=== PATIENT | female | born 1990 | race African-American/Black ===

== ENCOUNTER 2017-05-30 20:03 | Emergency (ER) | payer SELFPAY ==
[~2017-05-30 20:03] MED LIST: ISOVUE-370 76%-LOCM 1 ML ONE
[2017-05-30 20:50] LABS: Bilirubin Negative (Negative); Blood, Urine Negative (Negative); Clarity CLEAR (Clear); Glucose, Urine (Dipstick) Negative (Negative); Leukocyte Negative (Negative); Nitrite Negative (Negative); Pregnancy Test - Urine (BHCG) Negative (Negative); Protein, Urine (Dipstick) Negative (Neg-Trace); Specific Gravity, Urine 1.024 (1.002-1.036); pH, Urine 7.5 (5.0-9.0)
[2017-05-30 20:51] LABS: Pregu Control Background? CLEAR/WHITE (CLR/WHITE); Pregu Control Bar Appear? YES (CONTROL BAR); Specific Gravity 1.024 (1.002-1.036)
[2017-05-30 21:07] LABS: ALT (SGPT) 7 U/L (8-55); AST (SGOT) 16 U/L (5-34); Albumin 4.2 g/dL (3.5-5.0); Alkaline Phosphatase 49 U/L (40-150); Anion Gap 10 mmol/L (10-20); BUN (Urea Nitrogen) 10 mg/dL (7.0-18.7); Bilirubin, Total 0.2 mg/dL (0.2-1.2); CK (CPK) 168 U/L (29-168); Calc. Creatinine Clearance 0 mL/min (70-130); Calcium 9.4 mg/dL (7.8-10.44); Carbon Dioxide 27 mmol/L (22-29); Chloride 106 mmol/L (98-107); Estimated GFR-MDRD Greater than 90; Globulin 3.5 g/dL (2.4-3.5); Glucose 85 mg/dL (70-105); Potassium 3.9 mmol/L (3.5-5.1); Protein, Total 7.7 g/dL (6.0-8.3); Sodium 139 mmol/L (136-145)
[2017-05-30 21:12] LABS: CKMB 0.6 ng/mL (0-6.6); Troponin I Less than 0.010 ng/mL (< 0.028)
[2017-05-30] MEDS ORDERED: Morphine 4 MG/ML VIAL ONE ×2 (21:57→22:32)
[2017-05-30] MEDS ORDERED: Ondansetron ODT 4 MG TAB ONE ×2 (21:57→22:23)
--- NOTE | 2017-05-30 22:41 | CT ---
CT ABDOMEN AND PELVIS WITH IV CONTRAST: 05/30/2017 HISTORY: Constant sharp right lower quadrant abdominal pain and chest pain for the past three days. Nausea. COMPARISON: None available. FINDINGS: The lung bases, liver, spleen, pancreas, bilateral adrenal glands, kidneys, abdominal aorta, and urin eamon bladder demonstrate a normal CT appearance. Post cholecystectomy changes are present. There is fluid in the endometrial canal, which may be related to the stage of the patient's menstrual cycle. A small amount of free fluid is seen in the cul-de-sac. The appendix is not visualized, as there are multiple adjacent loops of unopacified small bowel, limi ting adequate evaluation. No fluid collection is seen. There is a rounded, 7 mm, metallic density seen overlying the region of a loop of small bowel, within the upper pelvis, which may be related to ingestion of a metallic foreign body. The osseous structures are intact. IMPRESSION: 1. Metallic foreign body, which appears to be within a loop of small bowel within the upper pelvis. Correlate for ingestion of a metallic foreign body. 2. Post cholecystectomy changes. 3. Small amount of free fluid in the cul-de-sac. 4. Nonvisualization of the appendix secondary to multiple unopacified loops of small bowel and lack of intraabdominal fat. 5. No acute findings are seen in the abdomen or pelvis. POS: [facility]
== END 2017-05-31 00:14 | disposition home or self-care (01) ==
LOC: ERS 20:03
DX: T18.8XXA Foreign body in other parts of alimentary tract, initial encounter (principal); R10.31 Right lower quadrant pain
CPT/HCPCS: 36415; 74177; 80053; 81003; 81025; 82150; 82550; 82553; 84484; 93005; 96361; 96374; 96376; J2270; Q0162

== ENCOUNTER 2017-06-28 10:14 | Emergency (ER) | payer SELFPAY | END 2017-06-28 11:15 | disposition left against medical advice (07) | LOC: ERS 10:14 | DX: Z53.21 Procedure and treatment not carried out due to patient leaving prior to being seen by health care provider (principal) ==

== ENCOUNTER 2017-09-14 02:08 | Emergency (ER) | payer SELFPAY ==
[2017-09-14 02:41] LABS: #Basophils 0.1 thou/uL (0.0-0.2); #Eosinphils 0.6 thou/uL (0.0-0.7); #Lymphocytes 2.9 thou/uL (1.20-3.40); #Monocytes 0.5 thou/uL (0.11-0.59); #Neutrophils 3.8 thou/uL (1.40-6.50); %Basophils 1.1 % (0.0-1.0); %Eosinophils 7.8 % (0.0-10.0); %Lymphocytes 36.7 % (21.0-51.0); %Monocytes 6.8 % (0.0-10.0); %Neutrophils 47.6 % (42.0-75.0); Hemoglobin 11.4 g/dL (12.0-16.0); Mean Corpuscular HGB CONC 35.2 g/dL (32.0-36.0); Mean Corpuscular Hemoglobin 31.3 pg (27.0-31.0); Mean Corpuscular Volume 88.7 fL (78.0-98.0); Mean Platelet Volume 7.4 fL (7.4-10.4); Platelet Count 338 thou/uL (130-400); RBC Distribution Width 11.9 % (11.5-14.5); Red Blood Cell (RBC) Count 3.65 mill/uL (4.20-5.40); White Blood Cell (WBC) Count 7.9 thou/uL (4.8-10.8)
[2017-09-14 03:03] LABS: ALT (SGPT) 9 U/L (8-55); AST (SGOT) 15 U/L (5-34); Alkaline Phosphatase 43 U/L (40-150); Anion Gap 14 mmol/L (10-20); BUN (Urea Nitrogen) 13 mg/dL (7.0-18.7); Bilirubin, Total 0.3 mg/dL (0.2-1.2); Calc. Creatinine Clearance 0 mL/min (70-130); Carbon Dioxide 22 mmol/L (22-29); Chloride 106 mmol/L (98-107); Estimated GFR-MDRD Greater than 90; Globulin 3.4 g/dL (2.4-3.5); Glucose 93 mg/dL (70-105); Lipase 43 U/L (8-78); Potassium 3.2 mmol/L (3.5-5.1); Protein, Total 7.4 g/dL (6.0-8.3); Sodium 139 mmol/L (136-145)
[2017-09-14 05:13] LABS: Bilirubin Negative (Negative); Blood, Urine Negative (Negative); Clarity CLEAR (Clear); Glucose, Urine (Dipstick) Negative (Negative); Leukocyte Negative (Negative); Nitrite Negative (Negative); Protein, Urine (Dipstick) Negative (Neg-Trace); pH, Urine 6.5 (5.0-9.0)
[2017-09-14 05:15] LABS: Pregnancy Test - Urine (BHCG) Negative (Negative); Pregu Control Background? CLEAR/WHITE (CLR/WHITE); Pregu Control Bar Appear? YES (CONTROL BAR); Specific Gravity Greater than 1.060 (1.002-1.036)
[2017-09-14 05:16] LABS: Specific Gravity, Urine Greater than 1.060 (1.002-1.036)
[2017-09-14] MEDS ORDERED: ISOVUE-370 76%-LOCM 1 ML ONE (06:41)
--- NOTE | 2017-09-14 08:23 | CT ---
PRELIMINARY REPORT/[facility]/EMERGENTY AFTER-HOURS PROCEDURE CT Abdomen and Pelvis With Intravenous Contrast CLINICAL HISTORY: 27 years old, female; Pain; Abdominal pain; Generalized; Patient HX: Surgical history of tubal ligati on, surgical history of cholecystectomy. 27 yo f presents to ed with abdominal pain. Pt reports sharp , constant abdominal pain that started suddenly while she was at her [employer] practice around 8: 30. Pt reports pain is worse with "coldness". Pt reports no HX of such pain since she had her gallbl adder removed back in 2009. Pt reports associated diarrhea, nausea, and back pain. Pt denies vomiting , denies dysuria. Pt denies any known medical issues, denies any daily medications, denies HX of smok ing, drinking, or drug use. Pt reports lmp was two weeks ago. TECHNIQUE: Axial computed tomography images of the abdomen and pelvis with intravenous contrast. Coronal reformatted images were created and reviewed. COMPARISON: No relevant prior studies available. FINDINGS: Lung bases: No acute findings. ABDOMEN: Liver: Hypoattenuation near the falciform ligament likely representing focal fat. Gallbladder and bile ducts: Cholecystectomy. Pancreas: Normal. Spleen: Normal. Adrenals: Normal. Kidneys and ureters: Normal. Stomach and bowel: Mild wall thickening and mesenteric haziness along a moderate length of terminal i leum. Mild wall thickening along the cecum. No obstruction. PELVIS: Appendix: Presumed appendix is unremarkable, lying toward midline on coronal reconstructions. Bladder: Unremarkable. Reproductive: Unremarkable. ABDOMEN and PELVIS: Intraperitoneal space: Small amount of free fluid in the pelvis, slightly more dense than simple flui d dependently. No free air. Bones/joints: Unremarkable. Soft tissues: Unremarkable. Vasculature: Unremarkable. Lymph nodes: Unremarkable. No enlarged lymph nodes. IMPRESSION: Mild thickening and mesenteric haziness along the distal ileum and cecum suggestive of ileocolitis. Thank you for allowing us to participate in the care of your patient. Dictated and Authenticated by: Timi Childress MD 09/14/2017 4:43 AM Central Time ([place] & [place]) ABDOMEN CT WITH CONTRAST: PELVIS CT WITH CONTRAST: HISTORY: Tubal ligation. Previous cholecystectomy. Sharp, constant abdominal pain. COMPARISON: 05/30/2017 FINDINGS: There may be mild inflammatory change involving the terminal ileum, as well as the cecum. Associated mild haziness of the mesentery. Correlate for ileocolitis. An appendix is difficult to appreciate on this examination. If there is concern for appendicitis, consider an appendix protocol CT. A smal l amount of free fluid in the pelvis is presumed to be physiologic. This report is in agreement with the preliminary report by [facility]. POS: [facility]
== END 2017-09-14 05:55 | disposition home or self-care (01) ==
LOC: ERS 02:08
DX: K52.9 Noninfective gastroenteritis and colitis, unspecified (principal)
CPT/HCPCS: 74177; 80053; 81003; 81025; 83690; 85025; 96361; 96374; 96375; 96376

== ENCOUNTER 2017-11-18 08:09 | Emergency (ER) | payer SELFPAY ==
[2017-11-18 08:34] LABS: Bilirubin Negative (Negative); Blood, Urine Negative (Negative); Clarity Clear (Clear); Glucose, Urine (Dipstick) Negative (Negative); Leukocyte Negative (Negative); Nitrite Negative (Negative); Protein, Urine (Dipstick) Negative (Neg-Trace)
[2017-11-18 08:35] LABS: Specific Gravity, Urine 1.026 (1.002-1.036)
[2017-11-18 08:37] LABS: Pregnancy Test - Urine (BHCG) Negative (Negative); Pregu Control Background? CLEAR/WHITE (CLR/WHITE); Pregu Control Bar Appear? YES (CONTROL BAR); Specific Gravity 1.026 (1.002-1.036)
== END 2017-11-18 08:44 | disposition home or self-care (01) ==
LOC: SCSER 08:09
DX: O20.9 Hemorrhage in early pregnancy, unspecified (principal); L03.90 Cellulitis, unspecified
CPT/HCPCS: 81003; 81025; 99284

== ENCOUNTER 2017-11-18 14:40 | Emergency (ER) | payer SELFPAY ==
[2017-11-18] MEDS ORDERED: Dexamethasone 10 MG/ML VIAL ONE (16:21)
== END 2017-11-18 16:25 | disposition home or self-care (01) ==
LOC: ERS 14:40
DX: T63.441A Toxic effect of venom of bees, accidental (unintentional), initial encounter (principal); L03.116 Cellulitis of left lower limb
CPT/HCPCS: 99283; J1100

== ENCOUNTER 2018-02-05 12:58 | Emergency (ER) | payer OTHER, SELFPAY ==
[2018-02-05] MEDS ORDERED: Ketorolac Tromethamine 30 MG/ML VIAL ONE (13:10)
[2018-02-05] MEDS ORDERED: HYDROcodone/Acetaminophen 5/325 mg Tablet ONE (13:10)
== END 2018-02-05 13:33 | disposition home or self-care (01) ==
LOC: ERS 12:58
DX: K03.2 Erosion of teeth (principal); K02.9 Dental caries, unspecified
CPT/HCPCS: 96372; J1885

== ENCOUNTER 2018-07-13 01:31 | Emergency (ER) | payer OTHER ==
[2018-07-13 01:56] LABS: #Basophils 0.1 thou/uL (0.0-0.2); #Eosinphils 0.2 thou/uL (0.0-0.7); #Lymphocytes 3.5 thou/uL (1.20-3.40); #Monocytes 0.6 thou/uL (0.11-0.59); #Neutrophils 7.5 thou/uL (1.40-6.50); %Basophils 0.9 % (0.0-1.0); %Eosinophils 2.1 % (0.0-10.0); %Lymphocytes 29.2 % (21.0-51.0); %Monocytes 4.7 % (0.0-10.0); %Neutrophils 63.1 % (42.0-75.0); Mean Corpuscular HGB CONC 34.9 g/dL (32.0-36.0); Mean Corpuscular Hemoglobin 31.4 pg (27.0-31.0); Mean Platelet Volume 7.7 fL (7.4-10.4); Platelet Count 353 thou/uL (130-400); Red Blood Cell (RBC) Count 3.83 mill/uL (4.20-5.40); White Blood Cell (WBC) Count 11.9 thou/uL (4.8-10.8)
[2018-07-13] MEDS ORDERED: HYDROcodone/Acetaminophen 5/325 mg Tablet ONE (02:47)
--- NOTE | 2018-07-13 09:43 | ULT ---
PRELIMINARY REPORT/[facility]/EMERGENCY AFTER HOURS PROCEDURE: EXAMS: US First Trimester, Transabdominal US , Transvaginal US Duplex Arterial/Venous of the Pelvis, Complete CLINICAL HISTORY: Vaginal bleeding. TECHNIQUE: Real-time transabdominal and transvaginal obstetrical ultrasound of the maternal pelvis and a first t rimester with image documentation. Transvaginal imaging was used for better evaluation of t he fetus and adnexa. Real-time duplex ultrasound scan of the pelvis integrating B-mode twodimensional vascular structure, Doppler spectral analysis and color flow Doppler imaging. COMPARISON: No relevant prior studies available. FINDINGS: Gestation: There are no visible products of an intrauterine gestation. There is no gestational sac, yolk sac, or pole. There are no appreciable heart tones. Maternal anatomy: Uterus: No acute disease. Right ovary: No acute findings. Normal blood flow on color and spectral Doppler imaging. No torsion. Left ovary: No acute findings. Normal blood flow on color and spectral Doppler imaging. No torsion. Small volume free fluid. Impression: No products of an intrauterine gestation identified. Differential considerations include -Viable gestation too early to visualize. -Nonviable gestation / miscarriage. -Ectopic gestation. Advise serial beta HCG measurements and short interval follow up exam if levels are rising. Thank you for allowing us to participate in the care of your patient. Dictated and Authenticated by: Leah Marsh MD 07/13/2018 3:38 AM Central Time ([place] & [place]) FINAL REPORT PELVIC SONOGRAPH TRANSABDOMINAL AND TRANSVAGINAL IMAGING WITH DUPLEX EVALUATION: DATE: 07/13/2018. TIME: Performed on an emergency basis at 0157 hours. HISTORY: Pelvic pain and bleeding. FINDINGS: Agree with the preliminary report by Dr. Marsh from [facility]. No evidence of intrauterin e gestation. Close clinical and sonographic followup required regarding the possibility of an ectopi c . POS: [facility]
== END 2018-07-13 03:49 | disposition home or self-care (01) ==
LOC: ERS 01:31
DX: O03.9 Complete or unspecified spontaneous abortion without complication (principal)
CPT/HCPCS: 76856; 84702; 85025

== ENCOUNTER 2018-10-16 17:42 | Emergency (ER) | payer OTHER ==
[2018-10-16] MEDS ORDERED: Ketorolac Tromethamine 60 MG/2 ML VIAL ONE ×2 (18:15→18:17)
== END 2018-10-16 18:40 | disposition home or self-care (01) ==
LOC: ERS 17:42
DX: M54.32 Sciatica, left side (principal); F41.9 Anxiety disorder, unspecified; Z79.899 Other long term (current) drug therapy
CPT/HCPCS: 96372; 99281; J1885

== ENCOUNTER 2018-10-26 07:01 | Emergency (ER) | payer OTHER ==
[2018-10-26] MEDS ORDERED: Glycopyrrolate 0.4 MG/ 2 ML VIAL SLOW IVP SCH (07:30)
[2018-10-26] MEDS ORDERED: Glycopyrrolate 0.2 MG/ML 5 ML SYRINGE SLOW IVP SCH (07:30)
[2018-10-26 08:06] LABS: #Basophils 0.1 thou/uL (0.0-0.2); #Eosinphils 0.3 thou/uL (0.0-0.7); #Lymphocytes 2.5 thou/uL (1.20-3.40); #Monocytes 1.1 thou/uL (0.11-0.59); #Neutrophils 4.5 thou/uL (1.40-6.50); %Basophils 0.8 % (0.0-1.0); %Eosinophils 3.7 % (0.0-10.0); %Lymphocytes 29.5 % (21.0-51.0); %Monocytes 12.6 % (0.0-10.0); %Neutrophils 53.5 % (42.0-75.0); Hemoglobin 11.6 g/dL (12.0-16.0); Mean Corpuscular HGB CONC 34.7 g/dL (32.0-36.0); Mean Corpuscular Volume 89.3 fL (78.0-98.0); Mean Platelet Volume 7.7 fL (7.4-10.4); Platelet Count 321 thou/uL (130-400); RBC Distribution Width 11.8 % (11.5-14.5); Red Blood Cell (RBC) Count 3.73 mill/uL (4.20-5.40); White Blood Cell (WBC) Count 8.4 thou/uL (4.8-10.8)
[2018-10-26 08:09] LABS: BHCG - Serum Negative (NEGATIVE); Pregs Control Background? CLEAR/WHITE (CLR/WHITE); Pregs Control Bar Appear? YES (CONTROL BAR)
[2018-10-26 08:22] LABS: ALT (SGPT) Less than 7 U/L (8-55); AST (SGOT) 10 U/L (5-34); Albumin 3.9 g/dL (3.5-5.0); Alkaline Phosphatase 42 U/L (40-150); Anion Gap 11 mmol/L (10-20); BUN (Urea Nitrogen) 7 mg/dL (7.0-18.7); Bilirubin, Total 0.2 mg/dL (0.2-1.2); CK (CPK) 81 U/L (29-168); Calc. Creatinine Clearance 0 mL/min (70-130); Calcium 8.9 mg/dL (7.8-10.44); Carbon Dioxide 22 mmol/L (22-29); Chloride 107 mmol/L (98-107); Estimated GFR-MDRD Greater than 90; Globulin 3.1 g/dL (2.4-3.5); Glucose 83 mg/dL (70-105); Lipase 30 U/L (8-78); Potassium 3.8 mmol/L (3.5-5.1); Sodium 136 mmol/L (136-145)
[2018-10-26] MEDS ORDERED: Promethazine HCl 25 MG/ML VIAL ONE (08:40)
== END 2018-10-26 09:06 | disposition home or self-care (01) ==
LOC: ERS 07:01
DX: O21.9 Vomiting of pregnancy, unspecified (principal); O99.89 Other specified diseases and conditions complicating pregnancy, childbirth and the puerperium; R19.7 Diarrhea, unspecified; O99.341 Other mental disorders complicating pregnancy, first trimester; F41.9 Anxiety disorder, unspecified; Z3A.01 Less than 8 weeks gestation of pregnancy
CPT/HCPCS: 36415; 80053; 82550; 83690; 84703; 85025; 96361; 96374; 96375; J2550

== ENCOUNTER 2019-05-22 01:08 | Emergency (ER) | payer OTHER, SELFPAY | END 2019-05-22 03:13 | disposition home or self-care (01) | LOC: ERS 01:08 | DX: T19.2XXA Foreign body in vulva and vagina, initial encounter (principal); F41.9 Anxiety disorder, unspecified | CPT/HCPCS: 99283 ==

== ENCOUNTER 2019-12-15 10:30 | Emergency (ER) | payer SELFPAY ==
[2019-12-15 11:15] LABS: #Eosinphils 0.2 thou/uL (0.0-0.7); #Lymphocytes 2.7 thou/uL (1.20-3.40); #Monocytes 0.3 thou/uL (0.11-0.59); #Neutrophils 3.1 thou/uL (1.40-6.50); %Basophils 0.4 % (0.0-1.0); %Eosinophils 3.6 % (0.0-10.0); %Lymphocytes 42.4 % (21.0-51.0); %Monocytes 4.8 % (0.0-10.0); %Neutrophils 48.7 % (42.0-75.0); Hemoglobin 12.5 g/dL (12.0-16.0); Mean Corpuscular HGB CONC 33.4 g/dL (32.0-36.0); Mean Corpuscular Hemoglobin 30.6 pg (27.0-31.0); Mean Corpuscular Volume 91.5 fL (78.0-98.0); Mean Platelet Volume 7.7 fL (7.4-10.4); Platelet Count 404 thou/uL (130-400); RBC Distribution Width 12.1 % (11.5-14.5); Red Blood Cell (RBC) Count 4.08 mill/uL (4.20-5.40); White Blood Cell (WBC) Count 6.4 thou/uL (4.8-10.8)
[2019-12-15 11:37] LABS: ALT (SGPT) Less than 7 U/L (8-55); AST (SGOT) 14 U/L (5-34); Albumin 4.2 g/dL (3.5-5.0); Alkaline Phosphatase 36 U/L (40-110); Anion Gap 12 mmol/L (10-20); BUN (Urea Nitrogen) 9 mg/dL (7.0-18.7); Bilirubin, Total 0.4 mg/dL (0.2-1.2); Calc. Creatinine Clearance 0 mL/min (70-130); Calcium 9.3 mg/dL (7.8-10.44); Carbon Dioxide 27 mmol/L (22-29); Chloride 106 mmol/L (98-107); Estimated GFR-MDRD Greater than 90; Globulin 3.3 g/dL (2.4-3.5); Glucose 84 mg/dL (70-105); Potassium 3.9 mmol/L (3.5-5.1); Protein, Total 7.5 g/dL (6.0-8.3); Sodium 141 mmol/L (136-145)
[2019-12-15 12:14] LABS: Bilirubin Negative (Negative); Blood, Urine Negative (Negative); Clarity Clear (Clear); Glucose, Urine (Dipstick) Normal (Negative); Ketone, Urine Negative (Negative); Leukocyte Negative Leu/uL (Negative); Nitrite Negative (Negative); Pregnancy Test - Urine (BHCG) Negative (Negative); Pregu Control Background? CLEAR/WHITE (CLR/WHITE); Pregu Control Bar Appear? YES (CONTROL BAR); Protein, Urine (Dipstick) Negative (Neg-Trace); Specific Gravity 1.006 (1.002-1.036); Specific Gravity, Urine 1.006 (1.002-1.036); Urobilinogen Normal mg/dL (Less than 2); pH, Urine 7.5 (5.0-9.0)
[2019-12-15] MEDS ORDERED: Mag-Al 1200 mg/1200 mg/30 ML UDCUP ONE (12:43)
[2019-12-15] MEDS ORDERED: Lidocaine Viscous Sol 2% 15 ml UD Cup ONE (12:43)
--- NOTE | 2019-12-15 13:34 | CT ---
EXAM: BRAIN CT WITHOUT IV CONTRAST: 12/15/19 HISTORY: Headache. COMPARISON: 12/14/08. FINDINGS: No focal mass of midline shift. No intra or extra-axial hemorrhage. Sinuses and mastoids are clear of acute process. IMPRESSION: No significant acute intracranial process. No mass or bleed. Stable from prior study. POS: [facility]
== END 2019-12-15 14:07 | disposition home or self-care (01) ==
LOC: ERS 10:30
DX: R10.12 Left upper quadrant pain (principal); R42 Dizziness and giddiness; R51.9 Headache, unspecified; R11.10 Vomiting, unspecified; F41.9 Anxiety disorder, unspecified
CPT/HCPCS: 36415; 70450; 80053; 81003; 81025; 83690; 85025

== ENCOUNTER 2020-05-28 11:32 | Emergency (ER) | payer SELFPAY | END 2020-05-28 13:34 | disposition home or self-care (01) | LOC: ERS 11:32 | DX: R10.30 Lower abdominal pain, unspecified (principal) | CPT/HCPCS: 99281 ==

== ENCOUNTER 2020-06-13 23:05 | Emergency (ER) | payer MEDICAID, SELFPAY ==
[2020-06-14] MEDS ORDERED: diphenhydrAMINE 50 MG/ML VIAL ONE (01:03)
[2020-06-14] MEDS ORDERED: Metoclopramide HCl 10 MG/2 ML VIAL ONE (01:03)
== END 2020-06-14 02:37 | disposition home or self-care (01) ==
LOC: ERS 23:05
DX: R51.9 Headache, unspecified (principal)
CPT/HCPCS: 96365; 96375; J1200; J2765